=== PATIENT | female | born 1980 | race Caucasian/White ===

== ENCOUNTER 2017-01-25 00:48 | Emergency (ER) | payer OTHER ==
[2017-01-25 01:08] VITALS: RESP 20; TEMP 98.9
[2017-01-25 01:16] LABS: APPEARANCE,URINE Cloudy; BILIRUBIN,URINE NEGATIVE (NEGATIVE); COLOR,URINE Yellow; GLUCOSE, URINE (UA) NEGATIVE (NEGATIVE); KETONES,URINE NEGATIVE (NEGATIVE); LEUKOCYTE ESTERASE ,URINE TRACE (NEGATIVE); NITRATE,URINE POSITIVE (NEGATIVE); OCCULT BLOOD,URINE 2+ (NEG-TRACE); UROBILINOGEN,URINE 0.2 (0.2-1.0 EU)
[2017-01-25 01:26] LABS: WBC,URINE 50-70 (0-5AV/HPF)
[2017-01-25] MEDS ORDERED: SULFAMETHOXAZOLE/TRIMETHOPRI 800/160 MG PO ONE (01:55)
[2017-01-25] MEDS ORDERED: SULFAMETHOXAZOLE/TRIMETHOPRI 800/160 MG ONE (02:08)
[2017-01-25 02:15] VITALS: BP 98/52; PULSE 82; O2SAT 98
== END 2017-01-25 02:13 | disposition home or self-care (01) ==
LOC: ED 00:48
DX: N39.0 Urinary tract infection, site not specified (principal)
CPT/HCPCS: 81001; 87077; 87088; 87186; 99283

== ENCOUNTER 2017-01-31 21:17 | Emergency (ER) | payer OTHER ==
[2017-01-31] MEDS ORDERED: KETOROLAC TROMETHAMINE 30 MG/ML SOL IV ONE (21:19)
[2017-01-31] MEDS ORDERED: DIPHENHYDRAMINE 50 MG/ML SOL IV ONE (21:19)
[2017-01-31] MEDS ORDERED: SODIUM CHLORIDE 0.9% 1000ML 1,000 ML IV ONE (21:19)
[2017-01-31] MEDS ORDERED: PROCHLORPERAZINE EDISYLATE 5 MG/ML SOL IV ONE (21:19)
[2017-01-31] MEDS ORDERED: SODIUM CHLORIDE 0.9% FLUSH 10 ML SOL IV PRN (21:46)
[2017-01-31] MEDS ORDERED: DIPHENHYDRAMINE 50 MG/ML SOL ONE (21:49)
[2017-01-31] MEDS ORDERED: KETOROLAC TROMETHAMINE 30 MG/ML SOL ONE (21:49)
[2017-01-31] MEDS ORDERED: PROCHLORPERAZINE EDISYLATE 5 MG/ML SOL ONE (21:49)
[2017-01-31 22:26] VITALS: BP 168/116; PULSE 77; RESP 18; TEMP 97.7; O2SAT 99
== END 2017-01-31 23:35 | disposition home or self-care (01) ==
LOC: ED 21:17
DX: G43.909 Migraine, unspecified, not intractable, without status migrainosus (principal)
CPT/HCPCS: 99284 ×2; J0780; J1200; J1885

== ENCOUNTER 2017-02-15 16:57 | Emergency (ER) | payer OTHER ==
[2017-02-15] MEDS ORDERED: SODIUM CHLORIDE 0.9% 1000ML 1,000 ML IV ONE (17:08)
[2017-02-15 17:11] VITALS: TEMP 97.1
[2017-02-15 17:26] LABS: BASOPHILS % (AUTO) 0 % (0-3); EOSINOPHILS % (AUTO) 1 % (0-9); HEMATOCRIT 37 % (35-47); MEAN CORPUSCULAR HGB CONC 35.1 gm/dl (32.0-36.0); MEAN CORPUSCULAR VOLUME 91 fL (81-99); MONOCYTES % (AUTO) 2.7 % (0-12); NEUTROPHILS % (AUTO) 77.8 % (37-80)
[2017-02-15 17:43] LABS: ALBUMIN 3.6 gm/dl (3.4-5.0); ALT 18 IU/L (14-63); CALCIUM 8.9 mg/dl (8.5-10.1); GLOM FILT RATE 80 mL/min (>60); POTASSIUM 3.5 mMol/L (3.5-5.1); SODIUM 139 mMol/L (136-145)
[2017-02-15] MEDS ORDERED: ALUMINUM/MAGNESIUM 30 ML SUS PO ONE (18:15)
[2017-02-15] MEDS ORDERED: LIDOCAINE HCL 2% (VISCOUS) 20 ML SOL MT ONE (18:15)
[2017-02-15] MEDS ORDERED: ALUMINUM/MAGNESIUM 30 ML SUS ONE (18:16)
[2017-02-15] MEDS ORDERED: LIDOCAINE HCL 2% (VISCOUS) 20 ML SOL ONE (18:17)
[2017-02-15 18:22] VITALS: BP 130/76; PULSE 85; RESP 16; O2SAT 100
== END 2017-02-15 18:30 | disposition home or self-care (01) ==
LOC: ED 16:57
DX: R55 Syncope and collapse (principal); K21.9 Gastro-esophageal reflux disease without esophagitis; R19.5 Other fecal abnormalities
CPT/HCPCS: 36415; 71010; 80053; 82272; 84484; 85025; 96365; 99283; 99284

== ENCOUNTER 2017-04-07 23:04 | Emergency (ER) | payer OTHER ==
[2017-04-07] MEDS ORDERED: ONDANSETRON 4 MG ODT BU ONE (23:11)
[2017-04-07] MEDS ORDERED: ONDANSETRON 4 MG ODT ONE (23:12)
[2017-04-07 23:24] VITALS: PULSE 89; RESP 16; O2SAT 98
[2017-04-07 23:24] LABS: BASOPHILS % (AUTO) 1 % (0-3); EOSINOPHILS % (AUTO) 1 % (0-9); HEMATOCRIT 35 % (35-47); MEAN CORPUSCULAR HGB CONC 35.6 gm/dl (32.0-36.0); MEAN CORPUSCULAR VOLUME 88 fL (81-99); MONOCYTES % (AUTO) 7.6 % (0-12); NEUTROPHILS % (AUTO) 36.2 % (37-80)
[2017-04-07] MEDS ORDERED: SODIUM CHLORIDE 0.9% 1000ML 1,000 ML IV ONE (23:35)
[2017-04-07 23:47] LABS: CALCIUM 8.8 mg/dl (8.5-10.1); POTASSIUM 3.8 mMol/L (3.5-5.1)
[2017-04-08 00:58] VITALS: BP 115/76; TEMP 97.6
== END 2017-04-08 00:50 | disposition home or self-care (01) ==
LOC: ED 23:04
DX: K52.9 Noninfective gastroenteritis and colitis, unspecified (principal)
CPT/HCPCS: 36415; 80048; 84443; 85025; 99283

== ENCOUNTER 2017-04-09 09:27 | Day surgery (SDC) | payer OTHER ==
[~2017-04-09 09:27] MED LIST: LIDOCAINE HCL 1% MPF SOL ONE; PROPOFOL 500 MG/50 ML EMU IV ONE
[2017-04-09] MEDS ORDERED: PROPOFOL 500 MG/50 ML EMU IV ONE (12:03)
[2017-04-09 12:43] VITALS: TEMP 97.4
[2017-04-09 12:54] VITALS: PULSE 77
[2017-04-09 13:01] VITALS: BP 120/82; RESP 18; O2SAT 98
== END 2017-04-09 13:17 | disposition home or self-care (01) ==
LOC: SURG 09:27
PROVIDERS: ATTEND Internal Medicine Gastroenterology
DX: R13.10 Dysphagia, unspecified (principal); K92.1 Melena; R19.7 Diarrhea, unspecified; K20.9 Esophagitis, unspecified; Q39.8 Other congenital malformations of esophagus; R10.30 Lower abdominal pain, unspecified; Z83.71 Family history of colonic polyps; K64.4 Residual hemorrhoidal skin tags; K64.8 Other hemorrhoids; K62.1 Rectal polyp; K63.5 Polyp of colon
CPT/HCPCS: 43239; 45380; 99001; J2001; J2704 ×2

== ENCOUNTER 2017-08-03 00:30 | Emergency (ER) | payer OTHER ==
[2017-08-03 00:50] VITALS: BP 167/105; PULSE 78; RESP 20; TEMP 96.4; O2SAT 100
[2017-08-03] MEDS ORDERED: KETOROLAC TROMETHAMINE 30 MG/ML SOL IM ONE (00:56)
[2017-08-03] MEDS ORDERED: DIPHENHYDRAMINE 50 MG/ML SOL IM ONE (00:56)
[2017-08-03] MEDS ORDERED: PROCHLORPERAZINE EDISYLATE 5 MG/ML SOL IM ONE (00:56)
[2017-08-03] MEDS ORDERED: PROCHLORPERAZINE EDISYLATE 5 MG/ML SOL ONE (00:58)
[2017-08-03] MEDS ORDERED: KETOROLAC TROMETHAMINE 30 MG/ML SOL ONE (00:58)
[2017-08-03] MEDS ORDERED: DIPHENHYDRAMINE 50 MG/ML SOL ONE (00:58)
== END 2017-08-03 01:57 | disposition home or self-care (01) ==
LOC: ED 00:30
DX: G43.109 Migraine with aura, not intractable, without status migrainosus (principal); R20.8 Other disturbances of skin sensation
CPT/HCPCS: 99283; J0780; J1200; J1885

== ENCOUNTER 2018-03-13 23:09 | Emergency (ER) | payer OTHER ==
[2018-03-13 23:10] VITALS: O2SAT 100
[2018-03-13 23:17] VITALS: PULSE 68; RESP 20; TEMP 95.2
[2018-03-13] MEDS ORDERED: SODIUM CHLORIDE 0.9% 1000ML 1,000 ML IV ONE (23:35)
[2018-03-13] MEDS ORDERED: ONDANSETRON HCL 4 MG/2 ML SOL IV ONE (23:37)
[2018-03-13] MEDS ORDERED: KETOROLAC TROMETHAMINE 30 MG/ML SOL IV ONE (23:37)
[2018-03-13] MEDS ORDERED: ONDANSETRON HCL 4 MG/2 ML SOL ONE (23:44)
[2018-03-13] MEDS ORDERED: KETOROLAC TROMETHAMINE 30 MG/ML SOL ONE (23:44)
[2018-03-13] MEDS ORDERED: SUMATRIPTAN SUCCINATE 6 MG/0.5 ML SOL SC ONE ×2 (23:47→23:49)
[2018-03-14 01:02] VITALS: BP 144/80
== END 2018-03-14 00:53 | disposition home or self-care (01) ==
LOC: ED 23:09
DX: G43.909 Migraine, unspecified, not intractable, without status migrainosus (principal)
CPT/HCPCS: 96365; 96372; 96374; 96375; 99283; 99284; J1885; J2405; J3030

== ENCOUNTER 2018-05-09 05:18 | Emergency (ER) | payer OTHER ==
[2018-05-09 05:31] VITALS: TEMP 96
[2018-05-09] MEDS ORDERED: KETOROLAC TROMETHAMINE 30 MG/ML SOL IM ONE (05:39)
[2018-05-09] MEDS ORDERED: KETOROLAC TROMETHAMINE 30 MG/ML SOL ONE (05:44)
[2018-05-09] MEDS ORDERED: ONDANSETRON HCL 4 MG/2 ML SOL IV ONE (06:07)
[2018-05-09] MEDS ORDERED: HYDROMORPHONE HCL 2 MG/ML SOL IV ONE (06:07)
[2018-05-09] MEDS ORDERED: ONDANSETRON HCL 4 MG/2 ML SOL ONE (06:30)
[2018-05-09] MEDS ORDERED: HYDROMORPHONE 1 MG/ML SYRINGE IV ONE (06:31)
[2018-05-09] MEDS ORDERED: HYDROMORPHONE 1 MG/ML SYRINGE ONE (06:32)
[2018-05-09 06:55] LABS: ALBUMIN 3.5 gm/dl (3.4-5.0); BILIRUBIN,TOTAL 0.2 mg/dl (0.2-1.0); CALCIUM 8.6 mg/dl (8.5-10.1); CARBON DIOXIDE 28.9 mEq/L (21-32); CREATININE 0.84 mg/dl (0.60-1.00); TOTAL PROTEIN 7.3 gm/dl (6.4-8.2)
[2018-05-09 07:03] LABS: BASOPHILS % (AUTO) 1 % (0-3); EOSINOPHILS % (AUTO) 2 % (0-9); HEMATOCRIT 38 % (35-47); HEMOGLOBIN 12.7 gm/dl (12.0-15.5); LYMPHOCYTES % (AUTO) 20.6 % (10-50); MEAN CORPUSCULAR HEMOGLOBIN 30.8 pg (27.0-32.0); MEAN CORPUSCULAR HGB CONC 33.7 gm/dl (32.0-36.0); MEAN CORPUSCULAR VOLUME 92 fL (81-99); MONOCYTES % (AUTO) 7.1 % (0-12); NEUTROPHILS % (AUTO) 69.4 % (37-80)
[2018-05-09 07:17] LABS: APPEARANCE,URINE Cloudy; BILIRUBIN,URINE NEGATIVE (NEGATIVE); COLOR,URINE Yellow; GLUCOSE, URINE (UA) NEGATIVE (NEGATIVE); KETONES,URINE NEGATIVE (NEGATIVE); LEUKOCYTE ESTERASE ,URINE NEGATIVE (NEGATIVE); NITRATE,URINE NEGATIVE (NEGATIVE); OCCULT BLOOD,URINE NEGATIVE (NEG-TRACE); PH,URINE 7.5; UROBILINOGEN,URINE 0.2 (0.2-1.0 EU)
[2018-05-09 08:02] LABS: RBC,URINE 0-2 (0-3AV/HPF)
[2018-05-09 08:03] LABS: BACTERIA 1+ (< 1+); CRYSTALS 2+ (0-3 AVE/HPF); EPITHELIAL CELLS 0-2 (SQUAMOUS); WBC,URINE 0-2 (0-5AV/HPF)
[2018-05-09 09:03] VITALS: BP 118/74; PULSE 70; RESP 14; O2SAT 98
== END 2018-05-09 08:52 | disposition home or self-care (01) ==
LOC: ED 05:18
DX: R10.2 Pelvic and perineal pain (principal)
CPT/HCPCS: 74019; 80053; 81001; 84703; 85025; 96372; 96374; 96375; 99283; 99284; J1885; J2405; J1170

== ENCOUNTER 2018-06-05 01:35 | Emergency (ER) | payer OTHER ==
[2018-06-05] MEDS ORDERED: PROCHLORPERAZINE EDISYLATE 5 MG/ML SOL IV ONE (02:01)
[2018-06-05] MEDS ORDERED: KETOROLAC TROMETHAMINE 30 MG/ML SOL IV ONE (02:02)
[2018-06-05] MEDS ORDERED: DIPHENHYDRAMINE 50 MG/ML SOL IV ONE (02:02)
[2018-06-05] MEDS ORDERED: KETOROLAC TROMETHAMINE 30 MG/ML SOL ONE (02:06)
[2018-06-05] MEDS ORDERED: PROCHLORPERAZINE EDISYLATE 5 MG/ML SOL ONE (02:07)
[2018-06-05] MEDS ORDERED: DIPHENHYDRAMINE 50 MG/ML SOL ONE (02:07)
[2018-06-05] MEDS ORDERED: SODIUM CHLORIDE 0.9% 1000 ML SOL IV SCH (02:15)
[2018-06-05] MEDS ORDERED: SODIUM CHLORIDE 0.9% 1000ML 1,000 ML IV SCH (02:15)
[2018-06-05 03:08] VITALS: BP 145/113; PULSE 74; RESP 16; TEMP 96.7; O2SAT 99
== END 2018-06-05 03:09 | disposition home or self-care (01) ==
LOC: ED 01:35
DX: G43.909 Migraine, unspecified, not intractable, without status migrainosus (principal)
CPT/HCPCS: 96365; 96374; 96375; 99283; 99285; J0780; J1200; J1885